=== PATIENT | female | born 1940 | race Hispanic/Latino ===

== ENCOUNTER → 2016-06-29 | Day surgery (SDC) | payer OTHER, MEDICARE ==
[~2016-06-29] VITALS: Ht 149.9 cm; Wt 70.8 kg
[~2016-06-29] MED LIST: BYETTA250 MCG/ML SC; CLARITIN10 M1 PO; CLOPIDOGREL75 MG PO; CRESTOR5 M1 PO; CYMBALTA30 M1 PO; DRISDOL50000 IU PO; DULOXETINE HYDR30 MG PO; ECOTRIN81 MG PO; FISH OIL CONCEN1 SGL PO; JANUVIA50 M1 PO; LANTUS INS100 UNITS/ SC; LANTUS SOL100 UNIT/1 SC; LEVEMIR 10100 UNITS/ SC; LEVOTHYROXINE0.05 M1 PO; LOSARTAN POTASS25 MG PO; LOSARTAN POTASS50 M1 PO; MELOXICAM15 MG PO; METFORMIN HCL500 M3 PO; METFORMIN1000 MG PO; PANTOPRAZOLE SO40 MG PO; PIOGLITAZONE HC30 M1 PO; PROTONIX40 M3 PO; RESTASIS 0.4 M0.4 ML OPH; SIMVASTATIN40 MG PO; SULFAMETHOXAZOL1 TA1 PO; SYNTHROID25 MCG PO; TOBRADEX ST EYE5 ML OPH; TOBRAMYCIN-DEXAM5 ML OPH; VITAB121000 PO
--- NOTE | 2016-06-29 13:56 | Operative Report ---
Operative/Inv Procedure Report Surgery Date: 06/29/16 Name of Procedure: right lumpectomy and sentinel node biopsy Pre-Operative Diagnosis: Right breast cancer, clinical stage 1 Post-Operative Diagnosis: same Estimated Blood Loss: less than 50ml Surgeon/Journeyman Molder: RALPH PRATER MD Anesthesia: local monitored anesthesi Specimens: Right lumpectomy, cranial margin, caudal margin, medial margin, lateral margin, deep margin, anterior margin, sentinel lymph node Operative/Procedure Note Note: Patient brought to the operating room on 06/29/2016 and placed supine on the table. Anesthesia was administered and 2 g of Ancef was given. 3 mL of methylene blue diluted with 2 mL of saline was injected in the retroareolar fashion. The breast was prepped and draped in a sterile fashion using ChloraPrep. The axilla was approached first. Incision 1% lidocaine mixed with Pap percent Marcaine was given and a transverse incision was made in the lower axilla. The axilla was explored. There was a single hot, blue lymph node identified. This was excised and marked as sentinel lymph node. There were no other hot, blue, or palpable lymph nodes in the axilla. It was stasis was adequate and the deep tissue was approximated using interrupted Vicryl sutures. The breast was then approached. Local anesthesia was given and a curvilinear incision was made in the periareolar region. The wire was brought into the incision. The area of concern was grasped using an Allis clamp and dissected using electrocautery. The specimen was removed and marked for orientation using margin map. Intraoperative x-ray confirmed the presence of the clip in the specimen. Additional margins were taken in the cranial, caudal, medial, lateral , deep, and anterior positions. Heme stasis adequate. Due to the patient's advanced age and diabetes, biosorb marker was not placed. The margins of the lumpectomy cavity were marked using mammary clips. Deep tissue was approximated using interrupted Vicryl sutures, and skin was closed using a running Biosyn subcuticular stitch. The axillary incision was closed in a similar fashion. Steri-Strips and sterile dressings were applied, the patient was transferred to the recovery room in satisfactory condition having tolerated the procedure well.
--- NOTE | 2016-06-29 14:00 | MAMMOGRAPHY REPORT ---
PROCEDURE: MM GUIDANCE FOR BREAST PREOPERATIVE NEEDLE LOCALIZATION, RIGHT SURGERY SPECIMEN RADIOGRAPHY, RIGHT CLINICAL INFORMATION: Biopsy proven right-sided invasive ductal carcinoma at 3 o'clock at middle depth. Preoperative needle localization is requested. COMPARISON: Prior studies done on 05/31/2016 and 04/20/2016 and 09/16/2014. TECHNIQUE/FINDINGS: The details of the procedure, as well as the risks, benefits, and alternatives to the procedure were explained to the patient in detail and all of her questions were answered, after which, written informed consent was obtained. Prior to the procedure, the previous stereotactic guided tissue marker placement was localized using previously available CC and ML views, obtain at the time of the stereotactic procedure. A cylindrical radiopaque marker is identified at the biopsy bed. Previously identified calcifications are no longer present. Subtle underlying asymmetry is also noted. A time-out was performed, the lesion intended for needle localization was targeted and the skin of the right breast was then prepped and draped in the usual sterile fashion. Using mammographic guidance, sterile technique and buffered 2% lidocaine without epinephrine for local anesthesia, a 7 cm Kopans needle- wire was placed at the site of the tissue marker at 3 o'clock, at middle depth, within the right breast. The patient tolerated the procedure well. The images were saved in the PACs, and were available in the operating room for review. Subsequently, following excision of the mass, specimen radiography was performed which revealed intact wire, and the previously placed tissue marker. IMPRESSION: 1. Successful mammographic-guided needle localization of the right breast biopsy-proven invasive ductal carcinoma at 3 o'clock, at middle depth. 2. Final specimen radiograph confirming removal of the previously placed tissue marker and intact wire.
== END ==
LOC: STS 01:46
DX: C50.811 Malignant neoplasm of overlapping sites of right female breast (principal); Z17.0 Estrogen receptor positive status [ER+]; E11.8 Type 2 diabetes mellitus with unspecified complications; Z79.4 Long term (current) use of insulin; I10 Essential (primary) hypertension; E03.9 Hypothyroidism, unspecified; J44.9 Chronic obstructive pulmonary disease, unspecified; Z95.1 Presence of aortocoronary bypass graft; Z98.61 Coronary angioplasty status; I25.2 Old myocardial infarction
CPT/HCPCS: 88305; 88307; J0131; J0690; J2001; J2250